=== PATIENT | female | born 1995 | race African-American/Black ===

== ENCOUNTER 2016-08-03 02:11 | Emergency (ER) | payer BC ==
--- NOTE | ~2016-08-03 | US106 ---
[facility] A Service of [facility] & [facility] RADIOLOGY TEXT RESULTS PATIENT: RAÚL NOONAN LOCATION: [facility] : [birth year] UNIT #: [id number] AGE: [address]: Sly Kim DO SEX: F ORDER DR: [id number] [facility] [address] [place], [place] [address] [id number] E MR#: [id number] Acc #: [id number] NAME: RAÚL NOONAN : 1995 SEX: F STUDY DATE/TIME: 08/03/2016 03:37 UNIT: MAC ROOM: STUDY DESCRIPTION: US Preg Uterus Transvaginal Attending Physician: Sly Kim D.O. Ordering Physician: Sly Kim D.O. Primary Care Physician: No Primary Care Physician MEDICAL IMAGING REPORT This report is preliminary unless electronic signature is present EXAM Pelvic ultrasound, 08/03 at 03:37. INDICATIONS Cramping and spotting for 1 hour. Beta HCG value is currently unavailable. FINDINGS Transabdominal and transvaginal imaging is performed of the pelvis in multiple planes. Transvaginal imaging performed for better evaluation of the endometrial contents and adnexa. No comparison. Uterus measures 7.5 x 3.7 x 4.9 cm. Intrauterine gestational sac is present. It contains small pole. Low heart rate is measured of only 35 beats per minute. I am unsure of the accuracy of this measurement, although on the cine clip, it does appears somewhat slow. Gestational age by ultrasound measurement is 6 weeks 4 days by crown-rump length. There is a complex heterogeneous lesion on the left ovary without internal vascularity. It measures at least 2.8 cm in diameter and is probably a corpus luteum or hemorrhagic cyst. The right ovary is normal. Both show perfusion by Doppler. IMPRESSION 1. There is an intrauterine measuring about 6 weeks 4 days gestational age. Heart rate is measured by Doppler, but it was only measured at 35 beats per minute. While this measurement may not be entirely accurate; on the cine clip provided, heart rate does appear slow. Dedicated obstetrical follow up is recommended. 2. Probable corpus luteum or hemorrhagic cyst on the left ovary. Both ovaries show perfusion by Doppler. Dictated by... Geronimo Santacruz Jr., M.D. [facility] A Service of [facility] RADIOLOGY TEXT RESULTS PATIENT: RAÚL NOONAN LOCATION: [facility] : [birth year] UNIT #: [id number] AGE: [address]: Sly Kim DO SEX: F ORDER DR: THIS IS AN ELECTRONICALLY VERIFIED REPORT Geronimo Santacruz Jr., M.D. at 08/03/2016 6:11 AM ARNIE/miles TD: 08/03/2016 05:26 JOB #: [id number] MEDICAL IMAGING REPORT Page 1 of 1 COPY
[2016-08-03 03:00] LABS: URINE SOURCE CLEAN CATCH
[2016-08-03 03:05] LABS: URINE APPEARANCE CLOUDY; URINE BILIRUBIN NEG (NEG); URINE BLOOD 3+ (NEG); URINE COLOR YELLOW; URINE GLUCOSE NEG (NEG); URINE KETONE NEG (NEG); URINE LEUKOCYTE ESTERASE 1+ (NEG); URINE NITRATE NEG (NEG); URINE PROTEIN TRACE (NEG); URINE SPECIFIC GRAVITY 1.025 (1.003-1.035)
[2016-08-03 03:07] LABS: CULTURE INDICATED? YES; URINE BACTERIA AUWI 3+ (NEGATIVE); URINE SQUAMOUS EPITHELIAL CELL MOD /[HPF]; UWBCS1 AUWI 25-50 (0-5)
[2016-08-03 03:38] LABS: BASOPHIL% 0.4 % (0-2.5); DIFF IND NO; EOSINOPHIL# 0.1 X10e3 (0-0.7); EOSINOPHIL% 0.8 % (0.0-7.0); HEMATOCRIT 38.2 % (35.0-45.0); HEMOGLOBIN 12.4 gm/dL (12.0-16.0); LYMPHOCYTE% 23.3 % (17.0-45.0); MEAN CELL VOLUME 82.3 FL (83-96); MEAN CORPUSCULAR HEMOGLOBIN 26.7 PG (28-34); MEAN CORPUSCULAR HGB CONC 32.4 g/dL (30-36); MONOCYTE# 0.8 X10e3 (0-1.0); MONOCYTE% 9.5 % (3.0-12.0); NEUTROPHIL# 5.5 X10e3 (1.5-7.1); PLATELET COUNT 141 X10e3 (140-420); RED BLOOD COUNT 4.64 X10e (3.90-5.30); RED CELL DISTRIBUTION WIDTH 15.2 % (11.0-15.5); WHITE BLOOD COUNT 8.4 X10e3 (4.0-10.5)
[2016-08-03 04:01] LABS: BUN/CREATININE RATIO 17.14; CREATININE SERUM 0.7 mg/dL (0.6-1.4); GLOM FILT RATE Estimated 142.5 mL/min (>60); POTASSIUM 3.6 mmol/L (3.5-5.1)
[2016-08-05 19:19] LABS: CHLAMYDIA TRACH Not Detected (Not Detected); N GONOR Not Detected (Not Detected)
== END 2016-08-03 05:50 | disposition home or self-care (01) ==
LOC: CED 02:11
PROVIDERS: Emergency Medicine
DX: O20.0 Threatened abortion (principal); O23.41 Unspecified infection of urinary tract in pregnancy, first trimester; Z3A.01 Less than 8 weeks gestation of pregnancy
CPT/HCPCS: 36415; 76817; 80048; 81003; 84702; 84703; 85025; 86900; 86901; 87086; 87491; 87591; 87808; 87905; 96374; 99284; J0696